=== PATIENT | female | born 1995 ===

== ENCOUNTER → 2021-09-18 | Outpatient (CLI) | payer OTHER ==
[~2021-09-18] MED LIST: IBUP800 PO; IRON150C PO; OXYACE5T PO; PNV-SELECT TAB1 EACH PO; VITAMENS
[2021-09-19 11:04] LABS: Candida species (DNA Probe) Negative (NEGATIVE); G. vaginalis (DNA Probe) Negative (NEGATIVE); T. vaginalis (DNA Probe) Negative (NEGATIVE)
[2021-09-20 10:09] LABS: CHLAMYDIA BY NAA Negative (Negative); GONOCOCCUS BY NAA Negative (Negative); TRICH VAG BY NAA Negative (Negative)
== END | disposition home or self-care (01) ==
LOC: LAB SHORT 11:55
PROVIDERS: Family Medicine
DX: N94.10 Unspecified dyspareunia (principal)
CPT/HCPCS: 87480; 87491; 87510; 87591; 87660; 87661

== ENCOUNTER → 2024-04-08 | Outpatient (CLI) | payer OTHER ==
[2024-04-08 12:55] LABS: Source, Urine Clean Catch
[2024-04-08 14:25] LABS: Appearance, Urine Clear (Clear); Bilirubin, Urine Neg (Neg); Blood, Urine Neg (Neg); Color, Urine Yellow (P-Yellow); Glucose Qualitative, Urine Neg (Neg); Ketones, Urine Neg (Neg); Leukocyte Esterase, Urine 3+ (Neg); Nitrite, Urine Neg (Neg); Protein, Urine 1+ (Neg); Specific Gravity, Urine 1.025 (1.003-1.022); Urobilinogen, Urine NORM (Normal)
[2024-04-08 14:46] LABS: Bacteria Many /hpf; Mucus Light (0-Heavy); Squamous Epithelial Cells Mod /hpf (Few)
[2024-04-08 14:47] LABS: Hyaline Casts 0-2 /lpf (0-2)
[2024-04-08 15:29] LABS: Candida Group, PCR NOT DETECTED (NOT DETECT)
[2024-04-08 15:41] LABS: Bacterial Vaginosis PCR Positive (NEGATIVE); Candida glabrata-krusei, PCR DETECTED (NOT DETECT)
[2024-04-09 19:13] LABS: HEPATITIS B SURFACE ANTIGEN Negative (Negative)
[2024-04-10 11:11] LABS: HEPATITIS C AB CIA INTERP Negative (Negative); HEPATITIS C ANTIBODY CIA INDEX 0.06 IV
== END | disposition home or self-care (01) ==
LOC: LAB 12:53 → LAB SHORT 12:53
PROVIDERS: Registered Nurse Community Health
DX: Z34.91 Encounter for supervision of normal pregnancy, unspecified, first trimester (principal); N89.8 Other specified noninflammatory disorders of vagina
CPT/HCPCS: 81001; 83036; 84443; 86803; 87086; 87340; 87481; 87661; 87801

== ENCOUNTER → 2024-04-16 | Outpatient (CLI) | payer OTHER ==
[2024-04-16 15:35] LABS: BASOPHILS ABSOLUTE AUTO 0.04 K/mm3 (0.00-0.23); BASOPHILS PERCENT AUTO 0 % (0-2); EOSINOPHILS ABSOLUTE AUTO 0.32 K/mm3 (0.00-0.68); EOSINOPHILS PERCENT AUTO 3 % (0-6); IMMATURE GRAN ABSOLUTE AUTO 0.04 K/mm3 (0.00-0.10); IMMATURE GRAN PERCENT AUTO 0 % (0-1); LYMPHOCYTES ABSOLUTE AUTO 1.59 K/mm3 (0.84-5.20); LYMPHOCYTES PERCENT AUTO 14 % (21-46); MONOCYTES ABSOLUTE AUTO 0.57 K/mm3 (0.16-1.47); MONOCYTES PERCENT AUTO 5 % (4-13); Mean Corpuscular HGB 29.4 pg (26.0-34.0); Mean Corpuscular HGB Conc 34.3 g/dL (31.5-36.5); Mean Corpuscular Volume 86 fL (80-100); Mean Platelet Volume 10.9 fL (9.1-12.4); NEUTROPHILS ABSOLUTE AUTO 8.73 K/mm3 (1.96-9.15); NEUTROPHILS PERCENT AUTO 77 % (41-73); Platelet Count 337 K/mm3 (150-400); RDW Coefficient Variation 14.3 % (11.7-14.2); RDW Standard Deviation 44.4 fL (35.1-46.3); Red Blood Cell Count 4.08 M/mm3 (3.80-5.20); White Blood Cell Count 11.29 K/mm3 (4.00-11.30)
[2024-04-17 16:16] LABS: HIV 1,2 COMBO ANTIGEN/ANTIBODY Negative (Negative)
== END ==
LOC: LAB SHORT 14:49 → LAB 14:49
PROVIDERS: Registered Nurse Community Health
DX: Z34.92 Encounter for supervision of normal pregnancy, unspecified, second trimester (principal)
CPT/HCPCS: 85025; 86850; 86900; 86901; 87389

== ENCOUNTER → 2024-06-17 | Outpatient (CLI) | payer OTHER ==
[2024-06-20 15:16] LABS: APTIMA MEDIA TYPE Urine; C. TRACHOMATIS BY TMA Negative (Negative); N. GONORRHOEAE BY TMA Negative (Negative); SPECIMEN SOURCE Urine
== END ==
LOC: LAB SHORT 14:57 → LAB 14:57
PROVIDERS: Registered Nurse Community Health
DX: Z34.93 Encounter for supervision of normal pregnancy, unspecified, third trimester (principal)
CPT/HCPCS: 87491; 87591

== ENCOUNTER → 2024-06-22 | Outpatient (CLI) | payer OTHER ==
[2024-06-22 15:34] LABS: BASOPHILS ABSOLUTE AUTO 0.04 K/mm3 (0.00-0.23); BASOPHILS PERCENT AUTO 0 % (0-2); EOSINOPHILS ABSOLUTE AUTO 0.19 K/mm3 (0.00-0.68); EOSINOPHILS PERCENT AUTO 2 % (0-6); Hematocrit 33.3 % (33.0-51.0); Hemoglobin 11.2 g/dL (11.5-16.0); IMMATURE GRAN ABSOLUTE AUTO 0.06 K/mm3 (0.00-0.10); IMMATURE GRAN PERCENT AUTO 1 % (0-1); LYMPHOCYTES ABSOLUTE AUTO 1.53 K/mm3 (0.84-5.20); LYMPHOCYTES PERCENT AUTO 13 % (21-46); MONOCYTES ABSOLUTE AUTO 0.72 K/mm3 (0.16-1.47); MONOCYTES PERCENT AUTO 6 % (4-13); Mean Corpuscular HGB 29.4 pg (26.0-34.0); Mean Corpuscular HGB Conc 33.6 g/dL (31.5-36.5); Mean Corpuscular Volume 87 fL (80-100); Mean Platelet Volume 10.7 fL (9.1-12.4); NEUTROPHILS ABSOLUTE AUTO 9.12 K/mm3 (1.96-9.15); NEUTROPHILS PERCENT AUTO 78 % (41-73); Platelet Count 338 K/mm3 (150-400); RDW Coefficient Variation 14.2 % (11.7-14.2); RDW Standard Deviation 44.8 fL (35.1-46.3); Red Blood Cell Count 3.81 M/mm3 (3.80-5.20); White Blood Cell Count 11.66 K/mm3 (4.00-11.30)
== END | disposition home or self-care (01) ==
LOC: LAB SHORT 14:57 → LAB 14:57
PROVIDERS: Family Medicine
DX: Z34.93 Encounter for supervision of normal pregnancy, unspecified, third trimester (principal)
CPT/HCPCS: 82950; 85025

== ENCOUNTER 2024-07-19 02:29 | Inpatient (IN) | payer OTHER ==
[2024-07-19] VITALS (20 sets, daily range): BP systolic 86–123; BP diastolic 55–90
[2024-07-19] MEDS ORDERED: Betamethasone Sod Phos/Acetate 6 MG/ML 5ML VIAL IM ONE (03:40)
[2024-07-19] MEDS ORDERED: Ampicillin Sod 2,000 MG in NS 100 ML IV ONE (03:40)
[2024-07-19 04:50] LABS: BASOPHILS ABSOLUTE AUTO 0.03 K/mm3 (0.00-0.23); BASOPHILS PERCENT AUTO 0 % (0-2); EOSINOPHILS PERCENT AUTO 3 % (0-6); Hematocrit 32.9 % (33.0-51.0); Hemoglobin 11.1 g/dL (11.5-16.0); IMMATURE GRAN ABSOLUTE AUTO 0.06 K/mm3 (0.00-0.10); IMMATURE GRAN PERCENT AUTO 0 % (0-1); LYMPHOCYTES ABSOLUTE AUTO 2.22 K/mm3 (0.84-5.20); LYMPHOCYTES PERCENT AUTO 16 % (21-46); MONOCYTES PERCENT AUTO 9 % (4-13); Mean Corpuscular HGB 29.4 pg (26.0-34.0); Mean Corpuscular HGB Conc 33.7 g/dL (31.5-36.5); Mean Corpuscular Volume 87 fL (80-100); Mean Platelet Volume 10.8 fL (9.1-12.4); NEUTROPHILS ABSOLUTE AUTO 10.07 K/mm3 (1.96-9.15); NEUTROPHILS PERCENT AUTO 72 % (41-73); Platelet Count 316 K/mm3 (150-400); RDW Coefficient Variation 13.9 % (11.7-14.2); RDW Standard Deviation 43.7 fL (35.1-46.3); Red Blood Cell Count 3.78 M/mm3 (3.80-5.20); White Blood Cell Count 13.98 K/mm3 (4.00-11.30)
[2024-07-19] MEDS ORDERED: Lactated Ringer's 1,000 ML IV ONE ×2 (06:06→06:10)
[2024-07-19] MEDS ORDERED: CeFAZolin Sodium 2,000 MG in NS 100 ML IV SCH ×2 (07:15→16:00)
[2024-07-19] MEDS ORDERED: Azithromycin 500 MG in NS 250 ML IV SCH (07:15)
[2024-07-19] MEDS ORDERED: Lactated Ringer's 1,000 ML IV SCH ×2 (07:15→09:50)
[2024-07-19] MEDS ORDERED: Metoclopramide HCl 5MG / ML 2ML Vial ONE (07:24)
[2024-07-19] MEDS ORDERED: Citric Acid/Sodium Citrate 30 ML BTL ONE (07:24)
[2024-07-19] MEDS ORDERED: FentaNYL Citrate 50 MCG/ML 2 ML Injection ONE (07:39)
[2024-07-19] MEDS ORDERED: Dexamethasone Sod Phos 10 MG/ML 1ML VIAL ONE (07:46)
[2024-07-19] MEDS ORDERED: Ondansetron HCl 2 MG / ML 2ML Vial ONE (07:46)
[2024-07-19] MEDS ORDERED: Ampicillin Sod 1,000 MG in NS 50 ML IV SCH (08:00)
[2024-07-19 08:29] LABS: PCO2 Cord - Arterial 73.8 mmHg (40-50); pH Cord - Arterial 7.04 (7.28-7.35)
--- NOTE | 2024-07-19 08:30 | NUR ---
07/19/24 0[address] BABY GIRL BORN AT 0800 CORD BLOOD AND SEGMENT SENT WITH OB RN AND RESPIRATORY CARE PROVIDER.
[2024-07-19] MEDS ORDERED: Oxytocin 10 Unit / ML Vial ONE ×2 (08:31→09:06)
[2024-07-19] MEDS ORDERED: Phenylephrine HCl 100 MCG/ML-NS 10MLSYR (1MG/10ML) ONE ×2 (08:31→08:39)
[2024-07-19 08:38] LABS: PCO2 Cord - Venous 45.3 mmHg (40-50); pH Umbilical Cord - Venous 7.22 (7.26-7.35)
[2024-07-19] MEDS ORDERED: Ketorolac Tromethamine 30mg Vial ONE (08:46)
[2024-07-19] MEDS ORDERED: Glycopyrrolate 0.2 MG/ML 5ML VIAL ONE ×2 (08:46→09:06)
[2024-07-19] MEDS ORDERED: Albumin (Human) 12.5gm/250ml 500 ML IV ONE (09:22)
[2024-07-19] MEDS ORDERED: Magnesium Hydroxide Conc 10 ML UDC PO PRN (09:50)
[2024-07-19] MEDS ORDERED: Simethicone 80 MG Chew PO PRN (09:50)
[2024-07-19] MEDS ORDERED: Methylergonovine Maleate 0.2MG / ML 1ML Amp IM PRN (09:55)
[2024-07-19] MEDS ORDERED: Morphine Sulfate 4 MG/1 ML Injection IV PRN (09:55)
[2024-07-19] MEDS ORDERED: Misoprostol 200 MCG Tab PR PRN (09:55)
[2024-07-19] MEDS ORDERED: Lanolin Cream TOP PRN (09:55)
[2024-07-19] MEDS ORDERED: Promethazine HCl 25 MG Supp PR PRN (09:55)
[2024-07-19] MEDS ORDERED: Naproxen 500 MG Tab PO PRN (09:55)
[2024-07-19] MEDS ORDERED: Promethazine HCl 25 MG Tab PO PRN (09:55)
[2024-07-19] MEDS ORDERED: OxyCODONE 5 mg/Acetamin 325 mg TABLET PO PRN (10:00)
[2024-07-19] MEDS ORDERED: OXYTOCIN/RINGER'S LACTATE 500 ML IV SCH (10:00)
[2024-07-19] MEDS ORDERED: Acetaminophen 500 MG Tab PO PRN (10:00)
[2024-07-19] MEDS ORDERED: Promethazine HCl 12.5 MG Supp PR PRN (10:00)
[2024-07-19] MEDS ORDERED: Ondansetron HCl 2 MG / ML 2ML Vial IV PRN (10:00)
[2024-07-19] MEDS ORDERED: Ketorolac Tromethamine 30mg Vial IV SCH (10:00)
[2024-07-19] MEDS ORDERED: Albumin (Human) 12.5gm/250ml 250 ML IV SCH (10:05)
[2024-07-19] MEDS ORDERED: Tranexamic Acid 100 ML IV PRN (10:30)
[2024-07-19] MEDS ORDERED: Metoclopramide HCl 5MG / ML 2ML Vial IV SCH (14:45)
[2024-07-19] MEDS ORDERED: Citric Acid/Sodium Citrate 30 ML BTL PO SCH (14:45)
[2024-07-19] MEDS ORDERED: Docusate Sodium 100 MG Cap PO SCH (21:00)
[2024-07-20 01:18] VITALS: BP 113/55
[2024-07-20 04:18] VITALS: BP 104/55
[2024-07-20 05:58] LABS: BASOPHILS ABSOLUTE AUTO 0.04 K/mm3 (0.00-0.23); BASOPHILS PERCENT AUTO 0 % (0-2); EOSINOPHILS PERCENT AUTO 0 % (0-6); Hematocrit 30.2 % (33.0-51.0); Hemoglobin 10.6 g/dL (11.5-16.0); IMMATURE GRAN ABSOLUTE AUTO 0.17 K/mm3 (0.00-0.10); IMMATURE GRAN PERCENT AUTO 1 % (0-1); LYMPHOCYTES ABSOLUTE AUTO 1.94 K/mm3 (0.84-5.20); LYMPHOCYTES PERCENT AUTO 7 % (21-46); MONOCYTES ABSOLUTE AUTO 2.41 K/mm3 (0.16-1.47); MONOCYTES PERCENT AUTO 8 % (4-13); Mean Corpuscular HGB 29.9 pg (26.0-34.0); Mean Corpuscular HGB Conc 35.1 g/dL (31.5-36.5); Mean Corpuscular Volume 85 fL (80-100); Mean Platelet Volume 10.3 fL (9.1-12.4); NEUTROPHILS ABSOLUTE AUTO 24.18 K/mm3 (1.96-9.15); NEUTROPHILS PERCENT AUTO 84 % (41-73); Platelet Count 365 K/mm3 (150-400); RDW Coefficient Variation 14.1 % (11.7-14.2); RDW Standard Deviation 43.5 fL (35.1-46.3); Red Blood Cell Count 3.55 M/mm3 (3.80-5.20); White Blood Cell Count 28.74 K/mm3 (4.00-11.30)
[2024-07-20] MEDS ORDERED: Ketorolac Tromethamine 30mg Vial IV PRN (07:00)
[2024-07-20] MEDS ORDERED: PRENATAL TABLE1 EAC2 (07:15)
--- NOTE | 2024-07-20 08:34 | NUR ---
UP AMBULATING IN ROOM. VOID#1 AND PASSING GAS NOW. TOLERATED WELL. PLANS TO DC TODAY TO GET UP TO BABY IN [place]. [facility] CALLING IN RX TO [facility]ONE.
[2024-07-20 08:45] VITALS: BP 110/54
[2024-07-20] MEDS ORDERED: Prenatal Vit/FE Fumarate/FA 1 Tab PO SCH (09:00)
[2024-07-20 12:37] VITALS: BP 98/53
--- NOTE | 2024-07-20 14:20 | NUR ---
[facility] AT BEDSIDE. PT IS JUST WANTING TO STAY ANOTHER NIGHT AND WILL GO TO [place] TOMORROW.
[2024-07-20 20:33] VITALS: BP 109/58
[2024-07-21 00:47] VITALS: BP 113/56
[2024-07-21 00:53] VITALS: BP 113/56
[2024-07-21 03:57] VITALS: BP 123/63
[2024-07-21 04:17] VITALS: BP 113/56
[2024-07-21 07:47] VITALS: BP 123/59
--- NOTE | 2024-07-21 10:37 | NUR ---
dc teaching gone over with pt, request ppfu call on sat, written in book aware is ready to discharge. needs a set of vs before leaving, encoruaged to call with questions, gave [facility] number to call. niki foreman told pt to call her if she is unable to be back in [place] in 7-10 days for dressing removal and she would make arrangements for pt to have it done in [place].
[2024-07-21 11:52] VITALS: BP 122/78
--- NOTE | 2024-07-21 12:20 | NUR ---
dc home with fob, they are driving straight to [place] to see baby. has meds already, gave her the frozen colstrum she had pumped. pt ambulated out. encouraged to call with questions
== END 2024-07-21 12:05 | disposition home or self-care (01) | DRG 788 ==
LOC: OBS 02:29 → BC 02:32 → OBS 07:08 → BC 07:10
PROVIDERS: Obstetrics & Gynecology; ADMIT Registered Nurse Community Health
PROC: 10D00Z1 Extraction of Products of Conception, Low, Open Approach (ICD-10-PCS; principal; 2024-07-19 07:00)
DX: O42.013 Preterm premature rupture of membranes, onset of labor within 24 hours of rupture, third trimester (principal); Z3A.33 33 weeks gestation of pregnancy; Z37.0 Single live birth; O24.420 Gestational diabetes mellitus in childbirth, diet controlled; O32.1XX0 Maternal care for breech presentation, not applicable or unspecified; O76 Abnormality in fetal heart rate and rhythm complicating labor and delivery; O69.81X0 Labor and delivery complicated by cord around neck, without compression, not applicable or unspecified
CPT/HCPCS: 36415; 59025; 82803; 82947; 85025; 86850; 86900; 86901; 86923; 87081; 87150; 99214; A9270; J0290; J0456; J0690; J0702; J1100; J1885; J2270; J2371; J2405; J2590; J2765; J3010; J7050; J7120; P9045

== ENCOUNTER → 2025-04-08 | Outpatient (CLI) | payer OTHER ==
[~2025-04-08] MED LIST changes: +PRENATAL TABLE1 EAC2
[2025-04-08 15:48] LABS: BASOPHILS ABSOLUTE AUTO 0.04 K/mm3 (0.00-0.23); BASOPHILS PERCENT AUTO 0 % (0-2); EOSINOPHILS ABSOLUTE AUTO 0.20 K/mm3 (0.00-0.68); EOSINOPHILS PERCENT AUTO 2 % (0-6); Hematocrit 34.9 % (33.0-51.0); Hemoglobin 11.6 g/dL (11.5-16.0); IMMATURE GRAN ABSOLUTE AUTO 0.03 K/mm3 (0.00-0.10); IMMATURE GRAN PERCENT AUTO 0 % (0-1); LYMPHOCYTES ABSOLUTE AUTO 2.43 K/mm3 (0.84-5.20); LYMPHOCYTES PERCENT AUTO 21 % (21-46); MONOCYTES ABSOLUTE AUTO 0.93 K/mm3 (0.16-1.47); MONOCYTES PERCENT AUTO 8 % (4-13); Mean Corpuscular HGB Conc 33.2 g/dL (31.5-36.5); Mean Corpuscular Volume 81 fL (80-100); NEUTROPHILS ABSOLUTE AUTO 8.09 K/mm3 (1.96-9.15); NEUTROPHILS PERCENT AUTO 69 % (41-73); NRBC ABSOLUTE 0.00 K/mm3 (0.00-0.02); NRBC Auto 0.0 /100 WBC (0.0-0.2); Platelet Count 389 K/mm3 (150-400); RDW Coefficient Variation 15.0 % (11.7-14.2); RDW Standard Deviation 43.6 fL (35.1-46.3)
[2025-04-08 16:07] LABS: Alanine Aminotransfer (ALT/SGP 25.0 U/L (12-78); Albumin, Blood 4.3 g/dL (3.4-5.0); Albumin/Globulin Ratio 1.0 (0.8-1.8); Anion Gap 13.0 mmol/L (3-11); Aspartate Aminotrans (AST/SGOT 13.0 U/L (12-37); Bilirubin, Total 0.2 mg/dL (0.1-1.0); Blood Urea Nitrogen 4.0 mg/dL (8-24); CO2, Blood 25.0 mmol/L (21-32); Calcium, Blood 9.5 mg/dL (8.5-10.1); Chloride, Blood 103.0 mmol/L (98-108); Creatinine, Blood 0.57 mg/dL (0.40-1.00); Globulin, Blood 4.3 g/dL (2.2-4.0); Glucose, Blood 108.0 mg/dL (70-99); Potassium, Blood 3.4 mmol/L (3.5-5.5); Sodium, Blood 138.0 mmol/L (136-145); Thyroid Stimulating Hormone 1.111 uIU/mL (0.360-4.800); Total Protein, Blood 8.6 g/dL (6.4-8.2)
== END | disposition home or self-care (01) ==
LOC: LAB 15:43 → LAB SHORT 15:43
PROVIDERS: Physician Assistant
DX: R07.9 Chest pain, unspecified (principal); R00.0 Tachycardia, unspecified
CPT/HCPCS: 80053; 84443; 84484; 85025; 85379